=== PATIENT | male | born 1935 | race Caucasian/White ===

== ENCOUNTER 2017-02-23 10:32 | Outpatient (CLI) ==
--- NOTE | 2017-02-23 11:39 | CT ---
EXAM: CT chest without contrast. HISTORY: Pulmonary nodule follow-up. COMPARISON: 05/26/2016, 02/15/2016, 10/16/2009. TECHNIQUE: Multiple axial images of the chest were obtained without intravenous contrast. Images w ere reformatted in the sagittal and coronal planes. FINDINGS: Multiple mediastinal lymph nodes are present. Calcified mediastinal and hilar lymph node s also present. Heart size is normal. There is no pericardial effusion. Ascending thoracic aorta measures up to 4.8 cm diameter. Atherosclerotic calcifications identified. Calcified pleural plaquing noted bilaterally. Emphysematous changes seen in both lungs with scarrin g in both lung apices, greater on the left. Right upper lobe micronodules have resolved. No suspic ious nodule, consolidation, pleural effusion or pneumothorax identified. Probable mucus in the left main bronchi. Limited images of the upper abdomen demonstrate no acute finding. No acute osseous abnormality iden tified. IMPRESSION: 1. Resolution of right upper lobe micronodules. No acute cardiopulmonary abnormality. 2. Redemonstration of ascending thoracic aortic aneurysm measuring up to 4.8 cm.
== END 2017-02-23 10:33 | disposition home or self-care (01) ==
LOC: RAD 10:32
PROVIDERS: ATTEND Internal Medicine Pulmonary Disease
DX: R91.8 Other nonspecific abnormal finding of lung field (principal)

== ENCOUNTER 2017-03-02 10:55 | Inpatient (IN) ==
[2017-03-02] MEDS ORDERED: VISTARIL INJ IM PRN (11:29)
[2017-03-02] MEDS ORDERED: NITROSTAT SL PRN (11:29)
[2017-03-02] MEDS ORDERED: ATROPINE SULFATE PFS IVP PRN (11:29)
[2017-03-02] MEDS ORDERED: TYLENOL PO PRN (11:29)
[2017-03-02] MEDS ORDERED: LOVENOX SUBCUT STA (11:35)
[2017-03-02] MEDS ORDERED: ASPIRIN EC PO STA (11:35)
[2017-03-02] MEDS ORDERED: HYDROCHLOROTHIAZIDE PO SCH (11:54)
[2017-03-02 11:55] LABS: BASOPHILS % (AUTO) 0.5 % (0.0-3.0); EOSINOPHILS % (AUTO) 0.5 % (0.0-7.0); HEMATOCRIT 43.1 % (42.0-52.0); HEMOGLOBIN 15.1 g/dl (14.0-18.0); IMMATURE GRANULOCYTE % (AUTO) 0.2 % (0.0-5.0); LYMPHOCYTES # (AUTO) 1.4 K/uL (0.60-3.4); MEAN CORPUSCULAR HEMOGLOBIN 31.9 pg (27.0-31.0); MEAN CORPUSCULAR VOLUME 90.9 fl (80.0-94.0); MONOCYTES # (AUTO) 0.4 K/uL (0.4-2.0); MONOCYTES % (AUTO) 7.4 (0-10); NEUTROPHILS # (AUTO) 3.9 K/ul (2.0-6.9); NEUTROPHILS % (AUTO) 67.4; PLATELET COUNT 199 10^3/uL (140-440); RED BLOOD COUNT 4.74 10^6/ul (4.70-6.10)
[2017-03-02 11:56] LABS: ABG BASE EXCESS -4 (-2.0-2.0); ABG PCO2 28.1 mmHg (35-45); ABG PH 7.453 (7.35-7.45)
[2017-03-02 11:57] LABS: ABG HCO3 19.7 (22.0-26.0); ABG TCO2 21 (22.0-28.0)
[2017-03-02] MEDS ORDERED: NON-FORMULARY MEDICATION (Hydrochlorothiazide [Hydrochlorothiazide] 12.5 MG) PO SCH ×22 (12:00)
[2017-03-02] MEDS ORDERED: SODIUM CHLORIDE 1,000 ML IV SCH (12:00)
[2017-03-02 12:19] VITALS: BMI 28.0
[2017-03-02 12:29] LABS: ALANINE AMINOTRANSFERASE 16 U/L (12-78); ALBUMIN/GLOBULIN RATIO 1.11; ALKALINE PHOSPHATASE 109 U/L (56-119); ASPARTATE AMINO TRANSFERASE 19 U/L (15-37); BLOOD UREA NITROGEN 22 mg/dL (7-18); BUN/CREATININE RATIO 18.64; CALCIUM 10.4 mg/dL (8.2-10.2); CARBON DIOXIDE 25 mmol/L (23-31); CHLORIDE 105 mmol/L (98-107); CREATINE KINASE 154 U/L; CREATININE 1.18 mg/dL (0.60-1.10); GLUCOSE 98 mg/dL (82-115); MYOGLOBIN 93 ng/ml; SODIUM 140 mmol/L (136-145); TOTAL PROTEIN 7.6 g/dL (5.8-8.1)
[2017-03-02 12:31] LABS: CREATINE KINASE MB 2.7 ng/ml (0.0-3.6)
[2017-03-02 14:33] LABS: BILIRUBIN,URINE Negative (NEGATIVE); KETONES,URINE Negative (NEGATIVE); LEUKOCYTE ESTERASE ,URINE Negative (NEGATIVE); NITRITE,URINE Negative (NEGATIVE); PH,URINE 5.5 (5-9); PROTEIN,URINE Negative (NEGATIVE); URINE, BLOOD Negative (NEGATIVE)
[2017-03-02 14:34] LABS: ADD URINE MICROSCOPIC NO
--- NOTE | 2017-03-02 16:10 | CT ---
EXAM: CT Angiogram Chest. HISTORY: Shortness of breath. Elevated D-dimer. COMPARISON: 02/23/2017. TECHNIQUE: Multiple axial images of the chest were obtained following intravenous administration of 100 mL of Visipaque 320, low osmolar. Images were reformatted in the sagittal and coronal plane. 3-D and maximum intensity projection reformatted images were created on an independent workstation. FINDINGS: Multiple small mediastinal lymph nodes present. Calcified mediastinal and hilar lymph no ajay also noted. Heart size is normal. No pericardial effusion identified. Atherosclerotic calcifi cations noted. Ascending thoracic aorta measures up to 4.8 cm diameter. No pulmonary arterial filling defects are identified. Calcified pleural plaquing noted bilaterally with stable areas of scarring in the left greater than right lung. Emphysematous changes again note d. No consolidation, pleural effusion or pneumothorax identified. Small hiatal hernia noted. No acute abnormality identified in the upper abdomen. No acute osseous abnormality detected. IMPRESSION: 1. No evidence for pulmonary embolus or other acute abnormality of the chest. 2. Stable ascending thoracic aortic aneurysm measuring up to 4.8 cm. 3. Stable calcified pleural plaquing, emphysema and areas of scarring.
[2017-03-02] MEDS ORDERED: ROCEPHIN ONE (18:23)
[2017-03-02] MEDS: ROCEPHIN 1 GM in SODIUM CHLORIDE 50 ML IV SCH (18:31)
[2017-03-02] MEDS: SOLU-MEDROL 125 MG IVP SCH ×2 (18:33→20:14)
[2017-03-02 20:13] LABS: TROPONIN I 0.011 ng/ml (0.0000-0.4000)
[2017-03-02] MEDS: FERROUS SULFATE PO SCH (20:14)
[2017-03-02] MEDS: ASPIRIN EC PO SCH (20:14)
[2017-03-02] MEDS: COLACE PO SCH (20:14)
[2017-03-02 20:16] LABS: CREATINE KINASE MB 2.3 ng/ml (0.0-3.6)
[2017-03-02] MEDS ORDERED: NON-FORMULARY MEDICATION (Ferrous Sulfate [Feosol] 325 MG) PO SCH ×22 (21:00)
[2017-03-02] MEDS ORDERED: NON-FORMULARY MEDICATION (Docusate Sodium [Stool Softener] 100 MG) PO SCH ×22 (21:00)
[2017-03-02] MEDS ORDERED: TORADOL IVP STA (21:03)
[2017-03-02] MEDS: DUONEB NEB SCH (21:23)
[2017-03-03] MEDS: DUONEB NEB SCH ×3 (05:04→22:08)
[2017-03-03 05:34] LABS: HEMATOCRIT 40.7 % (42.0-52.0); HEMOGLOBIN 14.4 g/dl (14.0-18.0); IMMATURE GRANULOCYTE % (AUTO) 0.4 % (0.0-5.0); LYMPHOCYTES # (AUTO) 1.2 K/uL (0.60-3.4); LYMPHOCYTES % (AUTO) 21.2 (10.0-50.0); MEAN CORPUSCULAR HEMOGLOBIN 31.8 pg (27.0-31.0); MEAN CORPUSCULAR HGB CONC 35.4 (31.8-35.4); MEAN CORPUSCULAR VOLUME 89.8 fl (80.0-94.0); MONOCYTES # (AUTO) 0.1 K/uL (0.4-2.0); MONOCYTES % (AUTO) 1.1 (0-10); NEUTROPHILS # (AUTO) 4.3 K/ul (2.0-6.9); NEUTROPHILS % (AUTO) 77.3; PLATELET COUNT 180 10^3/uL (140-440); RED BLOOD COUNT 4.53 10^6/ul (4.70-6.10); WHITE BLOOD COUNT 5.52 K/ul (4.2-10.2)
[2017-03-03] MEDS: SYNTHROID PO SCH (05:34)
[2017-03-03] MEDS: SOLU-MEDROL 125 MG IVP SCH ×3 (05:34→20:50)
[2017-03-03] MEDS: PROTONIX PO SCH (05:34)
[2017-03-03 06:03] LABS: ALBUMIN 3.5 g/dL (3.4-5.0); ALBUMIN/GLOBULIN RATIO 1.09; ANION GAP 19.2; BILIRUBIN,TOTAL 0.55 mg/dL (0.00-1.20); BUN/CREATININE RATIO 19.49; CALCIUM 9.8 mg/dL (8.2-10.2); CREATININE 1.18 mg/dL (0.60-1.10); POTASSIUM 4.2 mmol/L (3.5-5.1); TOTAL PROTEIN 6.7 g/dL (5.8-8.1)
[2017-03-03] MEDS ORDERED: ASPIRIN EC PO SCH (08:00)
--- NOTE | 2017-03-03 08:55 | PCM.PROG ---
Attending Provider: [facility] PROVID[facility] DATE OF SERV[facility]: 03/03/17 SUBJECTIVE: This 82 year old WHITE/ M was hospitalized 03/02/17. The patient is sitting in bed not in distress. Shortness of breath is a lot better. CT scan did not show pneumonia. Two sets of cardiac enzymes are negative. BNP is negative. EKG did not show any acute changes. REVIEW OF SYSTEMS: CONSTITUTIONAL: No fever, no chills. ENDOCRINE: No weight loss or weight gain. HEENT: No sinus drainage, no sore throat. CVS: No angina symptoms. No CHF symptoms. No palpitations. No atypical chest pain for CAD. Shortness of breath improved. RESPIRATORY: No cough, no hemoptysis. GI: No melena. No abdominal pain. No nausea, no vomiting. : No hematuria. No polyuria. SKIN: No rash. No wounds. MUSCULOSKELETAL: No pain. TOPOGRAPHIC COMPUTATOR: No blackout, no dizziness. No headache. No double vision. PSYCHIATRIC: Not anxious; no depression. No suicidal thoughts. No homicidal thoughts. PHYSICAL EXAMINATION: GENERAL: Lying in bed in no distress. VITAL SIGNS: Temperature 97.1 F, Pulse 74, Respiratory Rate 21, BP 113/64, Pulse Ox 96% HEENT: Normocephalic, atraumatic. Mucosa is dry, pallor positive. NECK: No JVP, no carotid bruit. No lymphadenopathy. CARDIAC: S1, S2, no S3. No murmur, gallop or regurgitation. LUNGS: Clear to auscultation. ABDOMEN: Soft, non-tender. Bowel sounds active. No rigidity, guarding or CVA tenderness. EXTREMITIES: No clubbing, cyanosis or edema. NEUROLOGIC: Awake, alert and oriented x3. LYMPHATIC: No palpable lymph nodes SKIN: Not dry. Intact. MUSCULOSKELETAL: No joint swelling. LAB REVIEW: 03/03/17 05:00 03/03/17 05:00 03/03/17 05:00: WBC 5.52, RBC 4.53 L, Hgb 14.4, Hct 40.7 L, MCV 89.8, MCH 31.8 H , MCHC 35.4, RDW Coeff of Camilo 13.2, Plt Count 180, Immature Gran % (Auto) 0.4, Neut % (Auto) 77.3, Lymph % (Auto) 21.2, [place] % (Auto) 1.1, Eos % (Auto) 0.0, Baso % (Auto) 0.0, Immature Gran # (Auto) 0.0, Neut # 4.3, Lymph # 1.2, [place] # 0.1 L, Eos # 0.0, Baso # 0.0, Sodium 140, Potassium 4.2, Chloride 104, Carbon Dioxide 21 L, Anion Gap 19.2, BUN 23 H, Creatinine 1.18 H, Estimated GFR (MDRD) 59.00, BUN/Creatinine Ratio 19.49, Glucose 155 H D, Calcium 9.8, Total Bilirubin 0.55, AST 14 L, ALT 14, Alkaline Phosphatase 97, Total Protein 6.7, Albumin 3.5, Globulin 3.2, Albumin/Globulin Ratio 1.09 03/02/17 19:35: Total Creatine Kinase 132, CK-MB (CK-2) 2.3, CK-MB (CK-2) % 1.98007, Myoglobin 71, Troponin I 0.0110 03/02/17 14:05: Urine Color Yellow, Urine Clarity Clear, Urine pH 5.5, Ur Specific [place] 1.010, Urine Protein Negative, Urine Glucose (UA) Negative, Urine Ketones Negative, Urine Blood Negative, Urine Nitrite Negative, Urine Bilirubin Negative, Urine Urobilinogen 0.2, Ur Leukocyte Esterase Negative 03/02/17 11:45: Puncture Site R rad, O2 Saturation 97.0, ABG pH 7.453 H, ABG pCO2 28.1 L, ABG pO2 82.0 L, ABG HCO3 19.7 L, ABG Total CO2 21 L, ABG Base Excess -4 L, Brad Test +, FiO2 % 21.0 03/02/17 11:40: WBC 5.80, RBC 4.74, Hgb 15.1, Hct 43.1, MCV 90.9, MCH 31.9 H, MCHC 35.0, RDW Coeff of Camilo 13.2, Plt Count 199, Immature Gran % (Auto) 0.2, Neut % (Auto) 67.4, Lymph % (Auto) 24.0, [place] % (Auto) 7.4, Eos % (Auto) 0.5, Baso % (Auto) 0.5, Immature Gran # (Auto) 0.0, Neut # 3.9, Lymph # 1.4, [place] # 0.4, Eos # 0.0, Baso # 0.0, D-Dimer (Manual) 1420.72, Sodium 140, Potassium 4.0 , Chloride 105, Carbon Dioxide 25, Anion Gap 14.0, BUN 22 H, Creatinine 1.18 H, Estimated GFR (MDRD) 59.00, BUN/Creatinine Ratio 18.64, Glucose 98, Calcium 10.4 H, Total Bilirubin 0.50, AST 19, ALT 16, Alkaline Phosphatase 109, Total Creatine Kinase 154, CK-MB (CK-2) 2.7, CK-MB (CK-2) % 1.77140, Myoglobin 93, Troponin I < 0.0100, B-Natriuretic Peptide 41, Total Protein 7.6, Albumin 4.0, Globulin 3.6, Albumin/Globulin Ratio 1.11 ASSESSMENT: 1. Shortness of breath secondary to COPD exacerbation, bronchitis 2. Shortness of breath, noncardiac 3. Hypertension 4. Osteoarthritis 5. Dyslipidemia PLAN: 1. Up and about 2. Contiue Rocephin 3. Continue Duonebs 4. Continue Solu-Medrol 5. Continue Lovenox Plan and coordination of the patient's care discussed in the presence of Chainstitch Hemmer and nurse. CONDITION: Stable SCRIBED BY: BRYAN SANABRIA Electrician Sound scribed while in presence of service performed by Dr. SELIN [facility] on 03/03/17 ([id number])
[2017-03-03] MEDS ORDERED: NON-FORMULARY MEDICATION (Losartan Potassium [Losartan Potassium] 50 MG) PO SCH (09:00)
[2017-03-03] MEDS ORDERED: NON-FORMULARY MEDICATION (Cholecalciferol (Vitamin D3) [Vitamin D3] 400 UNIT) PO SCH (09:00)
[2017-03-03] MEDS ORDERED: SYMBICORT 160-4.5 MCG INHALER IH SCH (09:00)
[2017-03-03] MEDS: MORPHINE 4 MG/ML SYRINGE IVP PRN ×2 (10:48→20:54)
[2017-03-03] MEDS: ROCEPHIN 1 GM in SODIUM CHLORIDE 50 ML IV SCH (10:54)
[2017-03-03] MEDS: SYMBICORT 160-4.5 MCG INHALER IH SCH ×2 (10:54→20:19)
[2017-03-03] MEDS: COZAAR PO SCH (10:55)
[2017-03-03] MEDS: FERROUS SULFATE PO SCH ×2 (10:56→20:21)
[2017-03-03] MEDS: COLACE PO SCH ×2 (10:56→20:20)
[2017-03-03] MEDS: VITAMIN D PO SCH (10:56)
[2017-03-03] MEDS: ASPIRIN EC PO SCH (20:20)
[2017-03-03] MEDS ORDERED: DULCOLAX PO STA (20:56)
[2017-03-04] MEDS: MORPHINE 4 MG/ML SYRINGE IVP PRN (01:25)
[2017-03-04 04:24] LABS: BASOPHILS % (AUTO) 0.1 % (0.0-3.0); EOSINOPHILS % (AUTO) 0.1 % (0.0-7.0); HEMATOCRIT 37.4 % (42.0-52.0); HEMOGLOBIN 13.4 g/dl (14.0-18.0); IMMATURE GRANULOCYTE % (AUTO) 0.8 % (0.0-5.0); LYMPHOCYTES # (AUTO) 0.9 K/uL (0.60-3.4); MEAN CORPUSCULAR HEMOGLOBIN 32.8 pg (27.0-31.0); MEAN CORPUSCULAR HGB CONC 35.8 (31.8-35.4); MEAN CORPUSCULAR VOLUME 91.4 fl (80.0-94.0); MONOCYTES # (AUTO) 0.5 K/uL (0.4-2.0); MONOCYTES % (AUTO) 3.1 (0-10); NEUTROPHILS # (AUTO) 13.6 K/ul (2.0-6.9); NEUTROPHILS % (AUTO) 89.9; PLATELET COUNT 213 10^3/uL (140-440); RED BLOOD COUNT 4.09 10^6/ul (4.70-6.10); WHITE BLOOD COUNT 15.12 K/ul (4.2-10.2)
[2017-03-04 04:50] LABS: ALBUMIN 3.4 g/dL (3.4-5.0); ALBUMIN/GLOBULIN RATIO 1.17; ANION GAP 19.5; BILIRUBIN,TOTAL 0.38 mg/dL (0.00-1.20); BUN/CREATININE RATIO 25.22; CALCIUM 9.8 mg/dL (8.2-10.2); CREATININE 1.11 mg/dL (0.60-1.10); POTASSIUM 4.5 mmol/L (3.5-5.1); TOTAL PROTEIN 6.3 g/dL (5.8-8.1)
[2017-03-04] MEDS: DUONEB NEB SCH ×2 (05:09→14:06)
[2017-03-04] MEDS: PROTONIX PO SCH (05:34)
[2017-03-04] MEDS: SYNTHROID PO SCH (05:34)
[2017-03-04] MEDS: SOLU-MEDROL 125 MG IVP SCH ×2 (05:54→13:06)
[2017-03-04] MEDS: FERROUS SULFATE PO SCH (08:21)
[2017-03-04] MEDS: VITAMIN D PO SCH (08:21)
[2017-03-04] MEDS: COZAAR PO SCH (08:21)
[2017-03-04] MEDS: COLACE PO SCH (08:21)
[2017-03-04] MEDS: ROCEPHIN 1 GM in SODIUM CHLORIDE 50 ML IV SCH (08:32)
[2017-03-04] MEDS: SYMBICORT 160-4.5 MCG INHALER IH SCH (08:32)
[2017-03-04] MEDS ORDERED: HYDROCHLOROTHIAZIDE PO SCH (09:00)
[2017-03-04 17:49] VITALS: BP 105/56; TEMP 97.5
--- NOTE | 2017-04-07 10:37 | DS ---
DATE OF SERVICE: 03/04/17 FINAL DIAGNOSIS: 1. Acute shortness of breath secondary to the COPD exacerbation 2. Aortic aneurysm, 4.8cm 3. Essential hypertension 4. Hypothyroidism 5. GERD 6. Tiny Hiatal hernia 7. Chronic diverticulosis 8. Arthritis 9. BPH 10.Erectile dysfunction, status post penile implant 11.Elevated D-dimer negative for the PE 12.Bilateral shoulder surgery 13.Elbow surgery 14.Cholecystectomy DISCHARGE INSTRUCTIONS: Discharge the patient home. Continue home medications. Followup with Dr. Joyce in 5-7 days. MEDICATIONS AT DISCHARGE: Symbicort 2 puffs twice a day Vitamin D 3 Stool softener Hydrochlorothiazide Levothyroxine Losartan Pantoprazole NEW PRESCRIPTIONS: Keflex 500mg Q 12 hours Prednisone 10mg twice a day for 7 more days DIET INSTRUCTIONS: Cardiac and Healthy ACTIVITY: As much as tolerated SMOKING: Heavy smoker DISEASE SPECIFIC EDUCATION: Healthy diet Weight loss Medication side effects been discussed Followup Diet control COPD Use of inhalers HOSPITAL COURSE: Mario Sylvester who is a 82 year old male came to the office complaining of acute onset of the shortness of breath, chest tightness, cough and congestion. At that time he was admitted to the hospital and started IV antibiotics, D-dimer was 1420, ABG showed the pH 7.453, pCO2 28.1, pO2 82, BUN 22, creatinine 1.18. BNP is 41. The patient was started on the breathing treatments and antibiotics. Solu-Medrol 60mg Q 8 was given. DUO NEBS were given. Rocephin 1 gram was given. With the given treatment gradually the patient started feeling better. CT chest with contrast did not show any PE, has ascending aneurysm of 4.8cm. BUN and creatinine were steady 22.18 and 23.18 and 28.11. BNP was negative. Two sets of the cardiac enzymes were negative. The patient is up and about and started walking and did not have any complications. No leg edema. As patient was feeling better the patient is being discharged home and outpatient pulmonology consultation will be obtains. TIME SPENT: MORE THAN 55 MINUTES MTDD
== END 2017-03-04 19:40 | disposition home or self-care (01) | DRG 192 ==
LOC: MEDSURG B 10:55
PROVIDERS: ADMIT Emergency Medicine; ATTEND Emergency Medicine
DX: J44.1 Chronic obstructive pulmonary disease with (acute) exacerbation (principal); R06.02 Shortness of breath; R07.89 Other chest pain; I71.2 Thoracic aortic aneurysm, without rupture; J20.9 Acute bronchitis, unspecified; R79.1 Abnormal coagulation profile; I10 Essential (primary) hypertension; E03.9 Hypothyroidism, unspecified; K21.9 Gastro-esophageal reflux disease without esophagitis; K44.9 Diaphragmatic hernia without obstruction or gangrene; K57.90 Diverticulosis of intestine, part unspecified, without perforation or abscess without bleeding; M19.90 Unspecified osteoarthritis, unspecified site; N40.0 Benign prostatic hyperplasia without lower urinary tract symptoms; N52.9 Male erectile dysfunction, unspecified; Z79.899 Other long term (current) drug therapy
CPT/HCPCS: 36415; 80053; 81001; 82550; 82553; 82803; 83874; 83880; 84484; 85025; 85379; 93005; 93010; 94640

== ENCOUNTER 2017-06-24 12:57 | Outpatient (CLI) ==
[2017-06-24 13:07] LABS: BASOPHILS % (AUTO) 0.4 % (0.0-3.0); EOSINOPHILS # (AUTO) 0.1 K/ul (0.0-0.7); EOSINOPHILS % (AUTO) 1.6 % (0.0-7.0); HEMATOCRIT 40.4 % (42.0-52.0); HEMOGLOBIN 14.2 g/dl (14.0-18.0); IMMATURE GRANULOCYTE % (AUTO) 0.2 % (0.0-5.0); LYMPHOCYTES # (AUTO) 1.6 K/uL (0.60-3.4); LYMPHOCYTES % (AUTO) 35.3 (10.0-50.0); MEAN CORPUSCULAR HEMOGLOBIN 32.7 pg (27.0-31.0); MEAN CORPUSCULAR HGB CONC 35.1 (31.8-35.4); MEAN CORPUSCULAR VOLUME 93.1 fl (80.0-94.0); MONOCYTES # (AUTO) 0.4 K/uL (0.4-2.0); MONOCYTES % (AUTO) 9.8 (0-10); NEUTROPHILS # (AUTO) 2.4 K/ul (2.0-6.9); NEUTROPHILS % (AUTO) 52.7; PLATELET COUNT 205 10^3/uL (140-440); RED BLOOD COUNT 4.34 10^6/ul (4.70-6.10)
[2017-06-24 13:39] LABS: ALBUMIN 3.7 g/dL (3.4-5.0); ALBUMIN/GLOBULIN RATIO 0.97; ANION GAP 13.8; BILIRUBIN,TOTAL 0.48 mg/dL (0.00-1.20); CALCIUM 9.7 mg/dL (8.2-10.2); CREATININE 1.03 mg/dL (0.60-1.10); POTASSIUM 3.8 mmol/L (3.5-5.1); TOTAL PROTEIN 7.5 g/dL (5.8-8.1)
[2017-06-24 13:40] LABS: BUN/CREATININE RATIO 16.5; CHOL/HDL RATIO 5.8 (4.5-6.4)
== END 2017-06-24 12:58 | disposition home or self-care (01) ==
LOC: LAB 12:57
PROVIDERS: ATTEND Emergency Medicine
DX: I71.2 Thoracic aortic aneurysm, without rupture (principal); I10 Essential (primary) hypertension; E03.9 Hypothyroidism, unspecified; K21.9 Gastro-esophageal reflux disease without esophagitis
CPT/HCPCS: 36415; 80053; 80061; 84443; 85025

== ENCOUNTER → 2017-08-26 | Outpatient (RCR) | payer OTHER ==
--- NOTE | 2017-08-06 16:45 | RS.OTEVAL ---
Subjective Date of Note: 08/06/17 Visit #: 1 Date of Evaluation: 08/06/17 Payer Source: MEDICARE Date of Onset/Injury/Change in Status: 07/27/12 Surgery Performed?: No Treatment Diagnosis: Chronic Right Shoulder Treatment Side (optional): Right *Precautions: none Prior Level of Function.....Patient was independent with: Ambulation/Mobility, Community Integration/Access History of Condition/Mechanism of Injury: Pt has had Right shoulder pain for at least 2-3 years. 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 Level of Function: Pt is not able to complete housework, or lifting a bag of groceries above his head, groom his hair, throw a ball with the RUE. Pt has difficulty pushing up on his hands, vacuuming, and sweeping, raking, and sleeping. Pt has a difficult time to put on his coat and shirt. Functional Limitations: Sleep, Self Care, ADL's, Reaching, Pushing, Pulling, Lifting, Carrying Current Complaints/Gains: Not able to use the RUE for reaching up over his head. Pt has severe pain with trying to change a light bulb. Medical History Medical History: Arthritis Surgical History Comments:: 4 back surgeries, bilateral shoulder surgery, right knee replacement, Diagnostic Testing/Imaging:: IMPRESSIONS: 1. C-spine minimal dextroscoliosis, mild spondylosis, multilevel facet arthropathy and multilevel DDD. 2. Mild central canal stenosis as C2-3, C3-4, C4-5, and C6-7. Moderate central stenosis at C5-6. 3. Multilevel cord flattening. No syrinx or myelomalacia. 4. Multilevel foraminal stenosis (anthony. C3-4 and C5-6). 5. Mild bilateral parotid gland fatty infiltration. 6. Bilateral apical lung scarring (left > right). Hx Home Medications: Muscle relaxant, Amlodopine, Benicar, Levothyroxine, Atorvastatin, pain pill Patient's Goals: To be able to use his RUE to reach above his head with less pain. Pain Assessment - Pain Description Pain Description: Radiating, Aching, Chronic Pain Location: Right shoulder in posterior scapula and down the middle deltoid. Pain Description: aches in the back of scapula. Current Pain Intensity: 0 Worst Pain Intensity: 8 Functional Outcome Measures UE Functional Index: 50 - G Codes & Severity Modifier G Codes: Current is CK at 50%. Goal is CH 0% Source of G Code score: Carrying, Moving, and Handling Objects Observation - Observation Posture: Forward Head, Rounded Shoulders Handedness: Right Shoulder ROM: Left WFL's Shoulder Muscle Strength: Left WFL's - Right Shoulder ROM Right Shoulder Flexion: 62 Right Shoulder Extension: 70 Right Shoulder Abduction: 66 Right Shoulder Horizontal Adduction: 20 Right Shoulder Internal Rotation: 30 Right Shoulder External Rotation: 15 Right Shoulder ROM Limitations: Soft Tissue Tightness, Muscle Weakness, Muscle Tone, Pain - Left Shoulder Strength Left Shoulder Flexion: 4+ Good + Left Shoulder Extension: 4+ Good + Left Shoulder Abduction: 4+ Good + Left Shoulder Adduction: 4+ Good + Left Shoulder External Rotation: 4+ Good + Left Shoulder Internal Rotation: 4+ Good + - Right Shoulder Strength Right Shoulder Flexion: 3- Fair- Right Shoulder Extension: 3- Fair- Right Shoulder Abduction: 3- Fair- Right Shoulder Adduction: 3- Fair- Right Shoulder External Rotation: 3- Fair- Right Shoulder Internal Rotation: 3- Fair- - Special Tests Shoulder Drop Arm Test: Positive Right (Pt has so much pain with shoulder flexion.) Elbow ROM: Bilaterally WFL's Elbow Muscle Strength: Bilaterally WFL's - Left Elbow Strength Left Elbow Extension: 4+ Good + Left Elbow Flexion: 4+ Good + Left Forearm Pronation: 4+ Good + Left Forearm Supination: 4+ Good + - Right Elbow Strength Right Elbow Extension: 4+ Good + Right Elbow Flexion: 4+ Good + Right Forearm Pronation: 4+ Good + Right Forearm Supination: 4+ Good + Wrist ROM: Bilaterally WFL's Wrist Muscle Strength: Bilaterally WFL's Sail Finisher Machine Strength Left Hand Sail Finisher Machine Strength: 82 Right Hand Sail Finisher Machine Strength: 80 Dynamometer Testing Position: 2nd Position Palpation Palpation Findings: Tenderness, Trigger Point, Muscle Guarding Comments:: Pt has limited shoulder movements due to muscle tightness. Sensation Right Upper Extremity: Intact/Normal Left Upper Extremity: Intact/Normal Sensation Description: Pain Modalities - Treatment Modality: US with ES (Comb.) Parameters/Method Applied: .4 w/cm2 Treatment Area: Right scapula Patient Position: Sitting - Treatment Modality: Electrical Stim Attended Treatment Area: Right scapula Patient Position: Sitting - Hot Pack/Cryotherapy Treatment: Hot Pack, Cryotherapy Interventions - Exercise/Activities Exercise/Activities/Manual Therapy: Education of drinking water. Manual therapy to help release the RUE scapula. - Charges Timed Code Treatment Minutes: 55 Total Treatment Time: 55 Procedures billed for this date of service:: Ayana-dimas, URBANO Assessment Assessment: Pt has tender points in the right subscapularis, supraspinatus. Pt has impaired shoulder flexion, abduction and external rotation. Patient Education: Body/Joint mechanics, Education of Plan of Care Rehab Potential: Good Problems/Comments: difficulty sleeping, pain during movement of arms, limited functional use of BUE. Short Term Goals Goal #1: Pt pain to decrease to 0-2/10. Goal to be met by: 08/20/17 Goal #2: Pt to increase RUE shoulder flexion to 90 degrees Goal to be met by: 08/20/17 Goal #3: Pt to be independent with home exercise program. Goal to be met by: 08/20/17 Goal #4: Pt to increase RUE shoulder abduction to 90 degrees. Goal to be met by: 08/20/17 Jail Goals Goal #1: Pt pain in RUE shoulder to decrease to 0/10. Goal to be met by: 09/10/17 Goal #2: Pt to increase RUE shoulder flexion to 135 degrees. Goal to be met by: 09/10/17 Goal #3: Pt to be independent with home Exercises. Goal to be met by: 09/10/17 Goal #4: Pt to increase RUE shoulder abduction to 110 degrees. Goal to be met by: 09/10/17 Plan - Treatment to be provided Procedures: Therapeutic Exercises, Therapeutic Activity, Neuromuscular Rehab, Manual Therapy, Patient Education Modalities: Electrical Stimulation, Ultrasound/Phonophoresis, Cryotherapy, Hot Packs - Treatment Plan Frequency: 3 X week Duration: 4 weeks ORDER # VISITS AND/OR THROUGH DATE: 12 - Treatment Code (1) Shoulder joint stiffness Qualifiers: Laterality: right Qualified Code(s): M25.611 - Stiffness of right shoulder , not elsewhere classified (2) Shoulder pain, right Code(s): M25.511 - PAIN IN RIGHT SHOULDER Qualifiers: Chronicity: chronic Qualified Code(s): M25.511 - Pain in right shoulder; G89.29 - Other chronic pain; G89.29 - Other chronic pain Comments: M25.511 Right shoulder pain.
--- NOTE | 2017-08-12 12:06 | RS.OTDNOTE ---
Subjective Date of Note: 08/12/17 Visit #: 2 Date of Evaluation: 08/06/17 Payer Source: MEDICARE Date of Onset/Injury/Change in Status: 07/27/12 Surgery Performed?: No Treatment Diagnosis: Chronic Right Shoulder Treatment Side (optional): Right *Precautions: none Prior Level of Function.....Patient was independent with: Ambulation/Mobility, Community Integration/Access History of Condition/Mechanism of Injury: Pt has had Right shoulder pain for at least 2-3 years. 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 Level of Function: Pt is not able to complete housework, or lifting a bag of groceries above his head, groom his hair, throw a ball with the RUE. Pt has difficulty pushing up on his hands, vacuuming, and sweeping, raking, and sleeping. Pt has a difficult time to put on his coat and shirt. Functional Limitations: Sleep, Self Care, ADL's, Reaching, Pushing, Pulling, Lifting, Carrying Current Complaints/Gains: Pain in supraspinatus, infraspinatus, and subscapularis muscles with shoulder flexion. Pain Assessment - Pain Description Pain Description: Radiating, Aching, Chronic Pain Location: Right shoulder in posterior scapula and down the middle deltoid. Pain Description: aches in the back of scapula. Current Pain Intensity: 3 Worst Pain Intensity: 8 Other comments regarding pain:: Pt hurts more with movement of his RUE into shoulder flexion. Modalities - Treatment Modality: Ultrasound Parameters/Method Applied: .4 w/cm to posterior scapula for 8 minutes to decrease tenderness and pain and increase AROM. Treatment Area: RUE posterior scapula. Patient Position: Sitting - Hot Pack/Cryotherapy Treatment: Hot Pack Comments:: to posterior cervical Interventions - Exercise/Activities Exercise/Activities/Manual Therapy: Education of drinking water. Manual therapy to help release the RUE scapula. HOME EXERCISE PROGRAM: overhead pulleys for 3-4 minutes at this time. - Objective Findings Objective Findings:: Tenderness of RUE posterior scapula. - Charges Timed Code Treatment Minutes: 55 Total Treatment Time: 55 Procedures billed for this date of service:: US, MT x3, HP Short Term Goals Goal #1: Pt pain to decrease to 0-2/10. Goal to be met by: 08/20/17 Goal #2: Pt to increase RUE shoulder flexion to 90 degrees Goal to be met by: 08/20/17 Goal #3: Pt to be independent with home exercise program. Goal to be met by: 08/20/17 Goal #4: Pt to increase RUE shoulder abduction to 90 degrees. Goal to be met by: 08/20/17 Chemical Pumper Goals Goal #1: Pt pain in RUE shoulder to decrease to 0/10. Goal to be met by: 09/10/17 Goal #2: Pt to increase RUE shoulder flexion to 135 degrees. Goal to be met by: 09/10/17 Goal #3: Pt to be independent with home Exercises. Goal to be met by: 09/10/17 Goal #4: Pt to increase RUE shoulder abduction to 110 degrees. Goal to be met by: 09/10/17 Plan PLAN OF CARE EXPIRES ON:: 09/10/17 ORDER # VISITS AND/OR THROUGH DATE: 12 PLAN: Increase RUE AROM into WFL and decrease pain to 0/10. Pt to increase RUE strength to 4+/5. Frequency: 2 X week Duration: 6 weeks
--- NOTE | 2017-08-14 16:34 | RS.OTDNOTE ---
Subjective Date of Note: 08/14/17 Visit #: 3 Date of Evaluation: 08/06/17 Payer Source: MEDICARE Date of Onset/Injury/Change in Status: 07/27/12 Surgery Performed?: No Treatment Diagnosis: Chronic Right Shoulder Treatment Side (optional): Right *Precautions: none Prior Level of Function.....Patient was independent with: Ambulation/Mobility, Community Integration/Access History of Condition/Mechanism of Injury: Pt has had Right shoulder pain for at least 2-3 years. 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 Level of Function: Pt is not able to complete housework, or lifting a bag of groceries above his head, groom his hair, throw a ball with the RUE. Pt has difficulty pushing up on his hands, vacuuming, and sweeping, raking, and sleeping. Pt has a difficult time to put on his coat and shirt. Functional Limitations: Sleep, Self Care, ADL's, Reaching, Pushing, Pulling, Lifting, Carrying Current Complaints/Gains: Pt states his UE feels better upon leaving today. States he has had some pain increase with therapy. States he has a frederic system at home and voices good understanding of CP application. Pain Assessment - Pain Description Pain Description: Radiating, Aching, Chronic Pain Location: Right shoulder in posterior scapula and down the middle deltoid. Pain Description: aches in the back of scapula. Modalities - Treatment Modality: Ultrasound Parameters/Method Applied: 1.5w/cm2 x 10 mins Treatment Area: middle deltoid and posterior shoulder Patient Position: Sitting - Hot Pack/Cryotherapy Treatment: Hot Pack, Cryotherapy Comments:: HP x 15 mins prior with CP applied x 10 mins following. Interventions - Exercise/Activities Exercise/Activities/Manual Therapy: Manual therapy to middle deltoid and posterior shoulder during PROM/gentle stretching. Pt instructed on and performed isometric ex x 4 directions with hold x 10 secs each. Supine PROM/ gentle stretching and hold release ex performed. Pt also instructed and performed codmans ex's in FF standing position and B UE frederic system x 2-3 mins. HOME EXERCISE PROGRAM: overhead pulleys for 3-4 minutes at this time. - Objective Findings Objective Findings:: Tenderness of RUE posterior scapula. - Charges Timed Code Treatment Minutes: 55 Total Treatment Time: 65 Procedures billed for this date of service:: CP US EX MT Assessment Patient Education: Education of diagnosis, Body/Joint mechanics, Home Exercise Program, Home Safety, Activity Modification, Education of Plan of Care Patient demonstrates compliance with HEP?: Yes Short Term Goals Goal #1: Pt pain to decrease to 0-2/10. Goal to be met by: 08/20/17 Progress towards goal: Progressing Goal #2: Pt to increase RUE shoulder flexion to 90 degrees Goal to be met by: 08/20/17 Progress towards goal: Progressing Goal #3: Pt to be independent with home exercise program. Goal to be met by: 08/20/17 Progress towards goal: Progressing Goal #4: Pt to increase RUE shoulder abduction to 90 degrees. Goal to be met by: 08/20/17 Progress towards goal: Progressing Bending Machine Operator Goals Goal #1: Pt pain in RUE shoulder to decrease to 0/10. Goal to be met by: 09/10/17 Progress towards goal: Progressing Goal #2: Pt to increase RUE shoulder flexion to 135 degrees. Goal to be met by: 09/10/17 Progress towards goal: Progressing Goal #3: Pt to be independent with home Exercises. Goal to be met by: 09/10/17 Progress towards goal: Progressing Goal #4: Pt to increase RUE shoulder abduction to 110 degrees. Goal to be met by: 09/10/17 Progress towards goal: Progressing Plan PLAN OF CARE EXPIRES ON:: 09/10/17 ORDER # VISITS AND/OR THROUGH DATE: 12 PLAN: Cont per POC to max fx I, strength, ROM and decrease c/o pain Frequency: 3 X week Duration: 3 weeks
--- NOTE | 2017-08-17 14:17 | RS.OTDNOTE ---
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 Level of Function: Pt is not able to complete housework, or lifting a bag of groceries above his head, groom his hair, throw a ball with the RUE. Pt has difficulty pushing up on his hands, vacuuming, and sweeping, raking, and sleeping. Pt has a difficult time to put on his coat and shirt. Functional Limitations: Sleep, Self Care, ADL's, Reaching, Pushing, Pulling, Lifting, Carrying Current Complaints/Gains: Pt states and demo improvement with AROM of (R) shoulder. States prior that he has not been able to drive a nail overhead but he was able to this wknd. States good compliance with ISO ex's and that he will be more compliant with applying CP following TE/TA of (R) UE. States popping and c/o pain "are getting better." Pain Assessment - Pain Description Pain Description: Radiating, Aching, Chronic Pain Location: Right shoulder in posterior scapula and down the middle deltoid. Pain Description: aches in the back of scapula. Modalities - Treatment Modality: Ultrasound Parameters/Method Applied: 1.5w/cm2 x 10 mins Treatment Area: anterior shoulder Patient Position: Sitting - Hot Pack/Cryotherapy Treatment: Hot Pack, Cryotherapy Interventions - Exercise/Activities Exercise/Activities/Manual Therapy: Manual therapy to middle deltoid and anterior/posterior shoulder during PROM/gentle stretching. Pt instructed on and performed isometric ex x 4 directions with hold x 10 secs each. Supine PROM /gentle stretching and hold release ex performed. Pt also instructed and performed codmans ex's in FF standing position, finger ladder and B UE frederic system x 2-3 mins along with ball/shelf activity and ball circles on the wall. HOME EXERCISE PROGRAM: overhead pulleys for 3-4 minutes at this time. - Objective Findings Objective Findings:: Tenderness of RUE posterior scapula. - Charges Timed Code Treatment Minutes: 45 Total Treatment Time: 65 Procedures billed for this date of service:: US EX2 CP Assessment Patient Education: Education of diagnosis, Body/Joint mechanics, Home Exercise Program, Home Safety, Activity Modification, Education of Plan of Care Patient demonstrates compliance with HEP?: Yes Short Term Goals Goal #1: Pt pain to decrease to 0-2/10. Goal to be met by: 08/20/17 Progress towards goal: Progressing Goal #2: Pt to increase RUE shoulder flexion to 90 degrees Goal to be met by: 08/20/17 Progress towards goal: Partially Met Comments: After PROM Goal #3: Pt to be independent with home exercise program. Goal to be met by: 08/20/17 Progress towards goal: Partially Met Goal #4: Pt to increase RUE shoulder abduction to 90 degrees. Goal to be met by: 08/20/17 Progress towards goal: Progressing Fine Arts Model Goals Goal #1: Pt pain in RUE shoulder to decrease to 0/10. Goal to be met by: 09/10/17 Progress towards goal: Progressing Goal #2: Pt to increase RUE shoulder flexion to 135 degrees. Goal to be met by: 09/10/17 Progress towards goal: Progressing Goal #3: Pt to be independent with home Exercises. Goal to be met by: 09/10/17 Progress towards goal: Progressing Goal #4: Pt to increase RUE shoulder abduction to 110 degrees. Goal to be met by: 09/10/17 Progress towards goal: Progressing Plan PLAN OF CARE EXPIRES ON:: 09/10/17 ORDER # VISITS AND/OR THROUGH DATE: 12 PLAN: Cont per POC to max fx I, strength, and ROM with decreased c/o pain. Frequency: 3 X week Duration: 4 weeks
--- NOTE | 2017-08-19 13:25 | RS.OTDNOTE ---
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 Level of Function: Pt is not able to complete housework, or lifting a bag of groceries above his head, groom his hair, throw a ball with the RUE. Pt has difficulty pushing up on his hands, vacuuming, and sweeping, raking, and sleeping. Pt has a difficult time to put on his coat and shirt. Functional Limitations: Sleep, Self Care, ADL's, Reaching, Pushing, Pulling, Lifting, Carrying Current Complaints/Gains: Pt states good compliance with performing HEP. States he has been applying a CP and states pain and popping is decreased. Pain Assessment - Pain Description Pain Description: Radiating, Aching, Chronic Pain Location: Right shoulder in posterior scapula and down the middle deltoid. Pain Description: aches in the back of scapula. Current Pain Intensity: 2 Worst Pain Intensity: 5 Modalities - Treatment Modality: Ultrasound Parameters/Method Applied: 1.5w/cm2 x 10 mins to anterior shoulder Patient Position: Sitting - Hot Pack/Cryotherapy Treatment: Hot Pack, Cryotherapy Interventions - Exercise/Activities Exercise/Activities/Manual Therapy: Manual therapy to middle deltoid and anterior/posterior shoulder during PROM/gentle stretching. Pt instructed on and performed isometric ex x 4 directions with hold x 10 secs each along with cervical stretching. Sitting PROM/gentle stretching and hold release ex performed. Pt also instructed and performed codmans ex's in FF standing position, finger ladder and B UE frederic system x 2-3 mins along with ball/shelf activity and ball circles on the wall and ball throws. HOME EXERCISE PROGRAM: overhead pulleys for 3-4 minutes at this time. - Objective Findings Objective Findings:: Tenderness decreasing-AROM increased - Charges Timed Code Treatment Minutes: 50 Total Treatment Time: 65 Procedures billed for this date of service:: CP US EX2 Assessment Patient Education: Education of diagnosis, Body/Joint mechanics, Home Exercise Program, Home Safety, Activity Modification, Education of Plan of Care Patient demonstrates compliance with HEP?: Yes Short Term Goals Goal #1: Pt pain to decrease to 0-2/10. Goal to be met by: 08/20/17 Progress towards goal: Progressing Comments: 12/03 Goal #2: Pt to increase RUE shoulder flexion to 90 degrees Goal to be met by: 08/20/17 Progress towards goal: Partially Met Comments: met in FF or supine position Goal #3: Pt to be independent with home exercise program. Goal to be met by: 08/20/17 Progress towards goal: Partially Met Goal #4: Pt to increase RUE shoulder abduction to 90 degrees. Goal to be met by: 08/20/17 Progress towards goal: Progressing Humidifier Attendant Goals Goal #1: Pt pain in RUE shoulder to decrease to 0/10. Goal to be met by: 09/10/17 Progress towards goal: Progressing Goal #2: Pt to increase RUE shoulder flexion to 135 degrees. Goal to be met by: 09/10/17 Progress towards goal: Progressing Goal #3: Pt to be independent with home Exercises. Goal to be met by: 09/10/17 Progress towards goal: Progressing Goal #4: Pt to increase RUE shoulder abduction to 110 degrees. Goal to be met by: 09/10/17 Progress towards goal: Progressing Plan PLAN OF CARE EXPIRES ON:: 09/10/17 ORDER # VISITS AND/OR THROUGH DATE: 12 PLAN: Cont per POC Frequency: 3 X week Duration: 4 weeks
--- NOTE | 2017-08-21 13:42 | RS.OTDNOTE ---
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 Level of Function: Pt is not able to complete housework, or lifting a bag of groceries above his head, groom his hair, throw a ball with the RUE. Pt has difficulty pushing up on his hands, vacuuming, and sweeping, raking, and sleeping. Pt has a difficult time to put on his coat and shirt. Functional Limitations: Sleep, Self Care, ADL's, Reaching, Pushing, Pulling, Lifting, Carrying Current Complaints/Gains: Pt and spouse both pleased with progress. States good compliance with HEP and applying CP. States pain continues but is low and mostly with lowering UE vs raising UE now. Pain Assessment - Pain Description Pain Description: Radiating, Aching, Chronic Pain Location: Right shoulder in posterior scapula and down the middle deltoid. Pain Description: aches in the back of scapula. Current Pain Intensity: 1-2 Worst Pain Intensity: 5 Modalities - Treatment Modality: Ultrasound Parameters/Method Applied: 1.0w/cm2 x 5 mins pulsed at 50% 3.3mhz to anterior shoulder. 1.5w/cm2 x 7 mins to anterior/posterior shoulder Patient Position: Sitting - Hot Pack/Cryotherapy Treatment: Hot Pack, Cryotherapy Interventions - Exercise/Activities Exercise/Activities/Manual Therapy: Manual therapy to middle deltoid and anterior/posterior shoulder during PROM/gentle stretching. Pt instructed on and performed isometric ex x 4 directions with hold x 10 secs each along with cervical stretching. Sitting PROM/gentle stretching and hold release ex performed. Pt also instructed and performed codmans ex's in FF standing position, finger ladder and B UE frederic system x 2-3 mins along with ball/shelf activity and ball circles on the wall and ball throws. HOME EXERCISE PROGRAM: overhead pulleys for 3-4 minutes at this time. - Objective Findings Objective Findings:: Tenderness decreasing-AROM increased - Charges Timed Code Treatment Minutes: 52 Total Treatment Time: 62 Procedures billed for this date of service:: CP US EX2 Assessment Patient Education: Education of diagnosis, Body/Joint mechanics, Home Exercise Program, Home Safety, Activity Modification, Education of Plan of Care Patient demonstrates compliance with HEP?: Yes Short Term Goals Goal #1: Pt pain to decrease to 0-2/10. Goal to be met by: 08/20/17 Progress towards goal: Partially Met Goal #2: Pt to increase RUE shoulder flexion to 90 degrees Goal to be met by: 08/20/17 Progress towards goal: Partially Met Goal #3: Pt to be independent with home exercise program. Goal to be met by: 08/20/17 Progress towards goal: Partially Met Goal #4: Pt to increase RUE shoulder abduction to 90 degrees. Goal to be met by: 08/20/17 Progress towards goal: Progressing Care Home Goals Goal #1: Pt pain in RUE shoulder to decrease to 0/10. Goal to be met by: 09/10/17 Progress towards goal: Progressing Goal #2: Pt to increase RUE shoulder flexion to 135 degrees. Goal to be met by: 09/10/17 Progress towards goal: Progressing Goal #3: Pt to be independent with home Exercises. Goal to be met by: 09/10/17 Progress towards goal: Progressing Goal #4: Pt to increase RUE shoulder abduction to 110 degrees. Goal to be met by: 09/10/17 Progress towards goal: Progressing Plan PLAN OF CARE EXPIRES ON:: 09/10/17 ORDER # VISITS AND/OR THROUGH DATE: 12 PLAN: Cont per POC for fx I strength and I. Frequency: 3 X week Duration: 4 weeks
--- NOTE | 2017-08-25 08:37 | RS.OTDNOTE ---
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 Level of Function: Pt is not able to complete housework, or lifting a bag of groceries above his head, groom his hair, throw a ball with the RUE. Pt has difficulty pushing up on his hands, vacuuming, and sweeping, raking, and sleeping. Pt has a difficult time to put on his coat and shirt. Functional Limitations: Sleep, Self Care, ADL's, Reaching, Pushing, Pulling, Lifting, Carrying Current Complaints/Gains: Pt states good compliance with HEP, frederic use, and applying CP. States increased pain and demo decreased AROM this date. Pt and states they had a busy wknd and believe pt is tired. Pain Assessment - Pain Description Pain Description: Radiating, Aching, Chronic Pain Location: Right shoulder in posterior scapula and down the middle deltoid. Pain Description: aches in the back of scapula. Current Pain Intensity: 3 Worst Pain Intensity: 6 Modalities - Treatment Modality: Ultrasound Parameters/Method Applied: 1.5w/cm2 x 10 mins anterior shoulder and middle deltoid Interventions - Exercise/Activities Exercise/Activities/Manual Therapy: Manual therapy to middle deltoid and anterior/posterior shoulder during PROM/gentle stretching. Pt instructed on and performed isometric ex x 4 directions with hold x 10 secs each along with cervical stretching. Sitting PROM/gentle stretching and hold release ex performed. Pt also instructed and performed codmans ex's in FF standing position, finger ladder and B UE frederic system x 2-3 mins along with ball/shelf activity and ball circles on the wall and ball throws. HOME EXERCISE PROGRAM: overhead pulleys for 3-4 minutes at this time. - Objective Findings Objective Findings:: Tenderness decreasing-AROM increased - Charges Timed Code Treatment Minutes: 60 Total Treatment Time: 60 Procedures billed for this date of service:: CP USEX2 Assessment Patient Education: Education of diagnosis, Body/Joint mechanics, Home Exercise Program, Home Safety, Activity Modification, Education of Plan of Care Patient demonstrates compliance with HEP?: Yes Short Term Goals Goal #1: Pt pain to decrease to 0-2/10. Goal to be met by: 08/20/17 Progress towards goal: Partially Met Goal #2: Pt to increase RUE shoulder flexion to 90 degrees Goal to be met by: 08/20/17 Progress towards goal: Partially Met Goal #3: Pt to be independent with home exercise program. Goal to be met by: 08/20/17 Progress towards goal: Partially Met Goal #4: Pt to increase RUE shoulder abduction to 90 degrees. Goal to be met by: 08/20/17 Progress towards goal: Progressing Civil Engineer In Training Goals Goal #1: Pt pain in RUE shoulder to decrease to 0/10. Goal to be met by: 09/10/17 Progress towards goal: Progressing Goal #2: Pt to increase RUE shoulder flexion to 135 degrees. Goal to be met by: 09/10/17 Progress towards goal: Progressing Goal #3: Pt to be independent with home Exercises. Goal to be met by: 09/10/17 Progress towards goal: Progressing Goal #4: Pt to increase RUE shoulder abduction to 110 degrees. Goal to be met by: 09/10/17 Progress towards goal: Progressing Plan PLAN OF CARE EXPIRES ON:: 09/10/17 ORDER # VISITS AND/OR THROUGH DATE: 12 PLAN: Cont per POC to max fx, strength, and AROM. Frequency: 3 X week Duration: 3 weeks
--- NOTE | 2017-08-26 13:17 | RS.OTDNOTE ---
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 Level of Function: Pt is not able to complete housework, or lifting a bag of groceries above his head, groom his hair, throw a ball with the RUE. Pt has difficulty pushing up on his hands, vacuuming, and sweeping, raking, and sleeping. Pt has a difficult time to put on his coat and shirt. Functional Limitations: Sleep, Self Care, ADL's, Reaching, Pushing, Pulling, Lifting, Carrying Current Complaints/Gains: Pt continues stating he is pleased with his progress and good compliance with HEP and applying CP. States pain at 0 during most of tx and following ice pack. Pain Assessment - Pain Description Pain Description: Radiating, Aching, Chronic Pain Location: Right shoulder in posterior scapula and down the middle deltoid. Pain Description: aches in the back of scapula. Current Pain Intensity: 2 Worst Pain Intensity: 5 Modalities - Treatment Modality: Ultrasound Parameters/Method Applied: 1.5w/cm2 x 10 mins Patient Position: Sitting - Hot Pack/Cryotherapy Treatment: Hot Pack, Cryotherapy Interventions - Exercise/Activities Exercise/Activities/Manual Therapy: Manual therapy to middle deltoid and anterior/posterior shoulder during PROM/gentle stretching. Pt instructed on and performed isometric ex x 4 directions with hold x 10 secs each along with cervical stretching. Sitting PROM/gentle stretching and hold release ex performed. Pt also instructed and performed codmans ex's in FF standing position, finger ladder and B UE frederic system x 2-3 mins along with ball/shelf activity and ball circles on the wall and ball throws. HOME EXERCISE PROGRAM: overhead pulleys for 3-4 minutes at this time. - Objective Findings Objective Findings:: Tenderness decreasing-AROM increased - Charges Timed Code Treatment Minutes: 45 Total Treatment Time: 59 Procedures billed for this date of service:: CP USEX2 Assessment Patient Education: Education of diagnosis, Body/Joint mechanics, Home Exercise Program, Home Safety, Activity Modification, Education of Plan of Care Patient demonstrates compliance with HEP?: Yes Short Term Goals Goal #1: Pt pain to decrease to 0-2/10. Goal to be met by: 08/20/17 Progress towards goal: Partially Met Goal #2: Pt to increase RUE shoulder flexion to 90 degrees Goal to be met by: 08/20/17 Progress towards goal: Partially Met Goal #3: Pt to be independent with home exercise program. Goal to be met by: 08/20/17 Progress towards goal: Partially Met Goal #4: Pt to increase RUE shoulder abduction to 90 degrees. Goal to be met by: 08/20/17 Progress towards goal: Progressing Telehealth Nurse Educator Goals Goal #1: Pt pain in RUE shoulder to decrease to 0/10. Goal to be met by: 09/10/17 Progress towards goal: Progressing Goal #2: Pt to increase RUE shoulder flexion to 135 degrees. Goal to be met by: 09/10/17 Progress towards goal: Progressing Goal #3: Pt to be independent with home Exercises. Goal to be met by: 09/10/17 Progress towards goal: Progressing Goal #4: Pt to increase RUE shoulder abduction to 110 degrees. Goal to be met by: 09/10/17 Progress towards goal: Progressing Plan PLAN OF CARE EXPIRES ON:: 09/10/17 ORDER # VISITS AND/OR THROUGH DATE: 12 PLAN: Cont per POC. Frequency: 3 X week Duration: 3 weeks
== END ==
PROVIDERS: ATTEND Emergency Medicine
DX: M25.511 Pain in right shoulder (principal)

== ENCOUNTER 2017-09-08 10:00 | Outpatient (RCR) | payer OTHER ==
[2017-06-24 13:01] VITALS: BMI 28.0
--- NOTE | 2017-08-31 08:47 | RS.OTDNOTE ---
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 Level of Function: Pt is not able to complete housework, or lifting a bag of groceries above his head, groom his hair, throw a ball with the RUE. Pt has difficulty pushing up on his hands, vacuuming, and sweeping, raking, and sleeping. Pt has a difficult time to put on his coat and shirt. Functional Limitations: Sleep, Self Care, ADL's, Reaching, Pushing, Pulling, Lifting, Carrying Current Complaints/Gains: Pt voices increased "soreness" with decreased AROM this date. States he believes the weather is affecting his level of pain. Pt cont stating good compliance with HEP and CP application. Pain Assessment - Pain Description Pain Description: Tightness, Radiating, Sharp, Dull, Throbbing, Aching Pain Location: Right shoulder in posterior scapula and down the middle deltoid. Pain Description: aches in the back of scapula. Current Pain Intensity: 3 Worst Pain Intensity: 5-6 Modalities - Treatment Modality: Ultrasound Parameters/Method Applied: Pulsed at 50% x 10 mins to anterior shoulder. - Treatment Modality: Class 4 Laser Parameters/Method Applied: Chronic pain shoulder protocol. no charge this date - Hot Pack/Cryotherapy Treatment: Hot Pack, Cryotherapy Comments:: HP prior to TE/TA with an ice massage/manual therapy performred following AROM/TE/TA's. Interventions - Exercise/Activities Exercise/Activities/Manual Therapy: Manual therapy to middle deltoid and anterior/posterior shoulder during PROM/gentle stretching. Pt instructed on and performed isometric ex x 4 directions with hold x 10 secs each along with cervical stretching. Sitting PROM/gentle stretching and hold release ex performed. Pt also instructed and performed codmans ex's in FF standing position, finger ladder and B UE frederic system x 2-3 mins along with ball/shelf activity and ball circles on the wall and ball throws. HOME EXERCISE PROGRAM: overhead pulleys for 3-4 minutes at this time. - Objective Findings Objective Findings:: Tenderness decreasing-AROM increased - Charges Timed Code Treatment Minutes: 50 Total Treatment Time: 65 Procedures billed for this date of service:: CP US EX Assessment Patient Education: Education of diagnosis, Body/Joint mechanics, Home Exercise Program, Home Safety, Activity Modification, Education of Plan of Care Patient demonstrates compliance with HEP?: Yes Short Term Goals Goal #1: Pt pain to decrease to 0-2/10. Goal to be met by: 08/20/17 Progress towards goal: Partially Met Goal #2: Pt to increase RUE shoulder flexion to 90 degrees Goal to be met by: 08/20/17 Progress towards goal: Met Goal #3: Pt to be independent with home exercise program. Goal to be met by: 08/20/17 Progress towards goal: Met Goal #4: Pt to increase RUE shoulder abduction to 90 degrees. Goal to be met by: 08/20/17 Progress towards goal: Met Prison Goals Goal #1: Pt pain in RUE shoulder to decrease to 0/10. Goal to be met by: 09/10/17 Progress towards goal: Progressing Goal #2: Pt to increase RUE shoulder flexion to 135 degrees. Goal to be met by: 09/10/17 Progress towards goal: Progressing Goal #3: Pt to be independent with home Exercises. Goal to be met by: 09/10/17 Progress towards goal: Progressing Goal #4: Pt to increase RUE shoulder abduction to 110 degrees. Goal to be met by: 09/10/17 Progress towards goal: Progressing Plan PLAN OF CARE EXPIRES ON:: 09/10/17 ORDER # VISITS AND/OR THROUGH DATE: 12 PLAN: OTR to reasses pt on next visit Frequency: 3 X week Duration: 1 week (OTR to reassess pt on next (10th) visit.)
--- NOTE | 2017-09-01 16:00 | RS.OTPN ---
Subjective Date of Note: 09/01/17 Visit #: 10 Date of Evaluation: 08/06/17 Payer Source: MEDICARE Date of Onset/Injury/Change in Status: 07/27/12 Surgery Performed?: No Treatment Diagnosis: Chronic Right Shoulder Treatment Side (optional): Right *Precautions: none Prior Level of Function.....Patient was independent with: Ambulation/Mobility, Community Integration/Access History of Condition/Mechanism of Injury: Pt has had Right shoulder pain for at least 2-3 years. 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 Level of Function: Pt is not able to complete housework, or lifting a bag of groceries above his head, groom his hair, throw a ball with the RUE. Pt has difficulty pushing up on his hands, vacuuming, and sweeping, raking, and sleeping. Pt has a difficult time to put on his coat and shirt. Functional Limitations: Sleep, Self Care, ADL's, Reaching, Pushing, Pulling, Lifting, Carrying Current Complaints/Gains: Pt reports he is getting better. He continues with pain in External Rotation and Abduction. Pt c/o pain with Codman's exercises Pain Assessment - Pain Description Pain Description: Tightness, Radiating, Sharp, Dull, Throbbing, Aching Pain Location: Right shoulder in posterior scapula and down the middle deltoid. Pain Description: aches in the back of scapula. Current Pain Intensity: 0 Worst Pain Intensity: 5 Functional Outcome Measures UE Functional Index: 27 - G Codes & Severity Modifier G Codes: Current is CJ at 27.5% impaired. Goal is CH- 0 Source of G Code score: Carrying , moving and Handling Observation - Observation Posture: Forward Head Handedness: Right - Right Shoulder ROM Right Shoulder Flexion: 110 Right Shoulder Extension: 55 Right Shoulder Abduction: 90 Right Shoulder Horizontal Adduction: 30 Right Shoulder Internal Rotation: 30 Right Shoulder External Rotation: 54 Right Shoulder ROM Limitations: Muscle Weakness, Pain - Left Shoulder Strength Left Shoulder Flexion: 4+ Good + Left Shoulder Extension: 4+ Good + Left Shoulder Abduction: 4+ Good + Left Shoulder Adduction: 4+ Good + Left Shoulder External Rotation: 4+ Good + Left Shoulder Internal Rotation: 4+ Good + - Right Shoulder Strength Right Shoulder Flexion: 4- Good- Right Shoulder Extension: 4+ Good + Right Shoulder Abduction: 4- Good- Right Shoulder Adduction: 4- Good- Right Shoulder External Rotation: 4- Good- Right Shoulder Internal Rotation: 4- Good- Elbow ROM: Left WFL's Elbow Muscle Strength: Left WFL's - Left Elbow Strength Left Elbow Extension: 4+ Good + Left Elbow Flexion: 4+ Good + Left Forearm Pronation: 4+ Good + Left Forearm Supination: 4+ Good + - Right Elbow Strength Right Elbow Extension: 4- Good- Right Elbow Flexion: 4- Good- Right Forearm Pronation: 4 Good Right Forearm Supination: 4 Good - Left Wrist Strength Left Wrist Extension: 4+ Good + Left Wrist Flexion: 4+ Good + Left Wrist Radial Deviation: 4+ Good + Left Wrist Ulnar Deviation: 4+ Good + Left Forearm Pronation: 4+ Good + Left Forearm Supination: 4+ Good + - Right Wrist Strength Right Wrist Extension: 4+ Good + Right Wrist Flexion: 4+ Good + Right Wrist Radial Deviation: 4+ Good + Right Wrist Ulnar Deviation: 4+ Good + Right Forearm Pronation: 4+ Good + Right Forearm Supination: 4+ Good + Palpation Palpation Findings: Tenderness, Trigger Point, Muscle Guarding Comments:: Pt has limited shoulder movements due to muscle tightness. Sensation Right Upper Extremity: Intact/Normal Left Upper Extremity: Intact/Normal Modalities - Hot Pack/Cryotherapy Treatment: Hot Pack Interventions - Exercise/Activities Exercise/Activities/Manual Therapy: Manual therapy to middle deltoid and anterior/posterior shoulder during PROM/gentle stretching. Pt instructed on and performed isometric ex x 4 directions with hold x 10 secs each along with cervical stretching. Sitting PROM/gentle stretching and hold release ex performed. Pt also instructed and performed codmans ex's in FF standing position, finger ladder and B UE frederic system x 2-3 mins along with ball/shelf activity and ball circles on the wall and ball throws. HOME EXERCISE PROGRAM: overhead pulleys for 3-4 minutes at this time. - Objective Findings Objective Findings:: Tenderness decreasing-AROM increased - Charges Timed Code Treatment Minutes: 60 Total Treatment Time: 60 Procedures billed for this date of service:: HP, EX, MTx3 Assessment Assessment: Pt has made progress toward her OT goals. Pt has 27% impairments. Rehab Potential: Good Problems/Comments: Limited AROM and some weakness of RUE. Pt compensates. Short Term Goals Goal #1: Pt pain to decrease to 0-2/10. Goal to be met by: 08/20/17 Progress towards goal: Partially Met Goal #2: Pt to increase RUE shoulder flexion to 120 degrees Goal to be met by: 09/11/17 Goal #3: Pt to be independent with home exercise program. Goal to be met by: 09/11/17 Goal #4: Pt to increase RUE shoulder abduction to 110 degrees. Goal to be met by: 09/11/17 Braiding Operator Goals Goal #1: Pt pain in RUE shoulder to decrease to 0/10. Goal to be met by: 09/10/17 Progress towards goal: Progressing Goal #2: Pt to increase RUE shoulder flexion to 135 degrees. Goal to be met by: 09/10/17 Progress towards goal: Progressing Goal #3: Pt to be independent with home Exercises. Goal to be met by: 09/10/17 Progress towards goal: Progressing Goal #4: Pt to increase RUE shoulder abduction to 110 degrees. Goal to be met by: 09/10/17 Progress towards goal: Progressing Plan PLAN OF CARE EXPIRES ON:: 09/11/17 ORDER # VISITS AND/OR THROUGH DATE: 12 PLAN: Pt to Complete the order and then we will see how he does. Frequency: 2 X week Duration: 2 weeks
--- NOTE | 2017-09-07 10:00 | RS.OTDNOTE ---
Subjective Date of Note: 09/04/17 Visit #: 11 Date of Evaluation: 08/06/17 Payer Source: MEDICARE Date of Onset/Injury/Change in Status: 07/27/12 Surgery Performed?: No Treatment Diagnosis: Chronic Right Shoulder Treatment Side (optional): Right *Precautions: none Prior Level of Function.....Patient was independent with: Ambulation/Mobility, Community Integration/Access History of Condition/Mechanism of Injury: Pt has had Right shoulder pain for at least 2-3 years. 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 Level of Function: Pt is not able to complete housework, or lifting a bag of groceries above his head, groom his hair, throw a ball with the RUE. Pt has difficulty pushing up on his hands, vacuuming, and sweeping, raking, and sleeping. Pt has a difficult time to put on his coat and shirt. Functional Limitations: Sleep, Self Care, ADL's, Reaching, Pushing, Pulling, Lifting, Carrying Current Complaints/Gains: Pt states the codman's ex increases pain. states good compliance with HEP and is agreeable to cont with upon DC from skilled OT. Pt is agreeable to DC next wk. Pain Assessment - Pain Description Pain Description: Dull Pain Location: Right shoulder in posterior scapula and down the middle deltoid. Pain Description: aches in the back of scapula. Current Pain Intensity: 1 Worst Pain Intensity: 3 Modalities - Treatment Modality: Electrical Stim Unattended Parameters/Method Applied: Hi-volt to pt tolerance cross-current to shoulder Patient Position: Sitting - Hot Pack/Cryotherapy Treatment: Hot Pack (HP x 20 mins) Interventions - Exercise/Activities Exercise/Activities/Manual Therapy: Manual therapy to middle deltoid and anterior/posterior shoulder during PROM/gentle stretching. Pt instructed on and performed isometric ex x 4 directions with hold x 10 secs each along with cervical stretching. Sitting PROM/gentle stretching and hold release ex performed. Pt also instructed and performed codmans ex's in FF standing position, finger ladder and B UE frederic system x 2-3 mins along with ball/shelf activity and ball circles on the wall and ball throws. HOME EXERCISE PROGRAM: overhead pulleys for 3-4 minutes at this time. - Objective Findings Objective Findings:: Tenderness decreasing-AROM increased - Charges Timed Code Treatment Minutes: 35 Total Treatment Time: 55 Procedures billed for this date of service:: HP EX2 ESTIM Assessment Patient Education: Education of diagnosis, Body/Joint mechanics, Home Exercise Program, Home Safety, Activity Modification, Education of Plan of Care Patient demonstrates compliance with HEP?: Yes Short Term Goals Goal #1: Pt pain to decrease to 0-2/10. Goal to be met by: 08/20/17 Progress towards goal: Partially Met Goal #2: Pt to increase RUE shoulder flexion to 120 degrees Goal to be met by: 09/11/17 Progress towards goal: Partially Met Goal #3: Pt to be independent with home exercise program. Goal to be met by: 09/11/17 Progress towards goal: Met Goal #4: Pt to increase RUE shoulder abduction to 110 degrees. Goal to be met by: 09/11/17 Progress towards goal: Progressing Senior Care Goals Goal #1: Pt pain in RUE shoulder to decrease to 0/10. Goal to be met by: 09/10/17 Progress towards goal: Progressing Goal #2: Pt to increase RUE shoulder flexion to 135 degrees. Goal to be met by: 09/10/17 Progress towards goal: Progressing Goal #3: Pt to be independent with home Exercises. Goal to be met by: 09/10/17 Progress towards goal: Progressing Goal #4: Pt to increase RUE shoulder abduction to 110 degrees. Goal to be met by: 09/10/17 Progress towards goal: Progressing Plan PLAN OF CARE EXPIRES ON:: 09/10/17 ORDER # VISITS AND/OR THROUGH DATE: 12 PLAN: Pt to attend x 1 therapy session to max HEP I Frequency: 1 X week Duration: 1 week
--- NOTE | 2017-09-10 13:22 | RS.OTDCSUM ---
Subjective Date of Discharge: 09/08/17 Date of Evaluation: 08/06/17 Number of Visits: 12 Treatment Diagnosis: Chronic RUE shoulder pain Current Level of Function: Pt is 26.25% impaired at discharge. CH was the goal, Current is CJ. Current Complaints/Gains: Pt reports pain with codman's exercises. Pt is proud he is able to use his RUE now. Pain Assessment - Pain Description Pain Description: Dull Pain Location: Right shoulder in posterior scapula and down the middle deltoid. Pain Description: aches in the back of scapula. Current Pain Intensity: 0 Worst Pain Intensity: 2 Functional Outcome Measures UE Functional Index: 59 - G Codes & Severity Modifier G Codes: CH was the goal. CJ is current status at 26.25%. Source of G Code score: Carrying, Moving, and handling Observation - Observation Posture: Forward Head Handedness: Right Shoulder ROM: Left WFL's Shoulder Muscle Strength: Left WFL's - Right Shoulder ROM Right Shoulder Flexion: 110 Right Shoulder Extension: 55 Right Shoulder Abduction: 90 Right Shoulder Internal Rotation: 30 Right Shoulder External Rotation: 54 Right Shoulder ROM Limitations: Soft Tissue Tightness, Muscle Weakness, Pain - Left Shoulder Strength Left Shoulder Flexion: 4+ Good + Left Shoulder Extension: 4+ Good + Left Shoulder Abduction: 4+ Good + Left Shoulder Adduction: 4+ Good + Left Shoulder External Rotation: 4+ Good + Left Shoulder Internal Rotation: 4+ Good + - Right Shoulder Strength Right Shoulder Flexion: 4 Good Right Shoulder Extension: 4+ Good + Right Shoulder Abduction: 4- Good- Right Shoulder Adduction: 4 Good Right Shoulder External Rotation: 4 Good Right Shoulder Internal Rotation: 4- Good- - Special Tests Shoulder Drop Arm Test: Negative Right Elbow ROM: Bilaterally WFL's Elbow Muscle Strength: Bilaterally WFL's - Left Elbow Strength Left Elbow Extension: 4+ Good + Left Elbow Flexion: 4+ Good + Left Forearm Pronation: 4+ Good + Left Forearm Supination: 4+ Good + - Right Elbow Strength Right Elbow Extension: 4 Good Right Elbow Flexion: 4 Good Right Forearm Pronation: 4 Good Right Forearm Supination: 4 Good Wrist ROM: Bilaterally WFL's Wrist Muscle Strength: Bilaterally WFL's - Left Wrist Strength Left Wrist Extension: 4+ Good + Left Wrist Flexion: 4+ Good + Left Wrist Radial Deviation: 4+ Good + Left Wrist Ulnar Deviation: 4+ Good + Left Forearm Pronation: 4+ Good + Left Forearm Supination: 4+ Good + - Right Wrist Strength Right Wrist Extension: 4+ Good + Right Wrist Flexion: 4+ Good + Right Wrist Radial Deviation: 4+ Good + Right Wrist Ulnar Deviation: 4+ Good + Right Forearm Pronation: 4+ Good + Right Forearm Supination: 4+ Good + Palpation Palpation Findings: Tenderness, Trigger Point, Muscle Guarding Comments:: Pt has limited shoulder movements due to muscle tightness. Sensation Right Upper Extremity: Intact/Normal Left Upper Extremity: Intact/Normal Interventions - Exercise/Activities Exercise/Activities/Manual Therapy: Manual therapy to middle deltoid and anterior/posterior shoulder during PROM/gentle stretching. Pt instructed on and performed isometric ex x 4 directions with hold x 10 secs each along with cervical stretching. Sitting PROM/gentle stretching and hold release ex performed. Pt also instructed and performed codmans ex's in FF standing position, finger ladder and B UE frederic system x 2-3 mins along with ball/shelf activity and ball circles on the wall and ball throws. HOME EXERCISE PROGRAM: overhead pulleys for 3-4 minutes at this time. - Objective Findings Objective Findings:: Tenderness decreasing-AROM increased - Charges Timed Code Treatment Minutes: estim, EX Total Treatment Time: 60 Procedures billed for this date of service:: E-stim, EX, Hp/CP Assessment Assessment: Pt has made really good progress with his OT. Pt has met many of his goals. Pt has increased his function of the RUE. Pt continues with 25% impaired but he is happy with his progress and that his pain has decreased. Rehab Potential: Good Problems/Comments: Pt takes longer to dress but he can do it now. Pt can comb his hair. Pt can wash his hair. Short Term Goals Goal #1: Pt pain to decrease to 0-2/10. Goal to be met by: 08/20/17 Progress towards goal: Not Met Goal #2: Pt to increase RUE shoulder flexion to 120 degrees Goal to be met by: 09/11/17 Progress towards goal: Partially Met Goal #3: Pt to be independent with home exercise program. Goal to be met by: 09/11/17 Progress towards goal: Met Goal #4: Pt to increase RUE shoulder abduction to 110 degrees. Goal to be met by: 09/11/17 Progress towards goal: Not Met Psychiatric Nurse Goals Goal #1: Pt pain in RUE shoulder to decrease to 0/10. Goal to be met by: 09/10/17 Progress towards goal: Met Goal #2: Pt to increase RUE shoulder flexion to 135 degrees. Goal to be met by: 09/10/17 Progress towards goal: Not Met Goal #3: Pt to be independent with home Exercises. Goal to be met by: 09/10/17 Progress towards goal: Met Goal #4: Pt to increase RUE shoulder abduction to 110 degrees. Goal to be met by: 09/10/17 Progress towards goal: Not Met Plan Reason for Discharge:: Maximum Potential Met Comments: Pt is independent with his Home exercise program. Pt discharged this date.
== END 2017-09-23 ==
PROVIDERS: ATTEND Emergency Medicine
DX: M25.511 Pain in right shoulder (principal); G89.29 Other chronic pain

== ENCOUNTER 2017-10-02 11:22 | Outpatient (CLI) ==
[2017-06-24 13:01] VITALS: BMI 28.0
== END 2017-10-02 11:23 | disposition home or self-care (01) ==
LOC: RHC-LAB 11:22
PROVIDERS: ATTEND Emergency Medicine
DX: I10 Essential (primary) hypertension (principal); I71.2 Thoracic aortic aneurysm, without rupture; K21.9 Gastro-esophageal reflux disease without esophagitis
CPT/HCPCS: 36415; 80053; 80061; 84443; 85025

== ENCOUNTER 2017-11-10 10:42 | Outpatient (CLI) | payer OTHER ==
[2017-06-24 13:01] VITALS: BMI 28.0
== END 2017-11-10 10:43 | disposition home or self-care (01) ==
LOC: RHC-LAB 10:42
PROVIDERS: ATTEND Emergency Medicine
DX: I71.2 Thoracic aortic aneurysm, without rupture (principal); I10 Essential (primary) hypertension
CPT/HCPCS: 36415; 80053; 80061; 84443; 85025

== ENCOUNTER 2018-03-09 11:05 | Outpatient (CLI) ==
[2017-06-24 13:01] VITALS: BMI 28.0
--- NOTE | 2018-03-09 11:46 | CT ---
EXAM: CT of the chest without contrast History: Short of breath Comparison: Chest CT 03/02/2017 Technique: Multiplanar CT images through the thorax were obtained without the administration of IV c ontrast Findings: Heart size is within normal limits. No change in the 4.8 cm ascending aortic aneurysm. Co ronary calcifications. No pericardial effusion. No axillary lymphadenopathy. Small scattered media stinal lymph nodes again noted. No pathologically enlarged thoracic lymph nodes. Calcified granulom as again seen within the thorax. Emphysema again noted. Biapical lung scarring again appreciated. Bronchial wall thickening but no consolidated pneumonia. No change in the calcified bilateral pleura l plaques and volume loss within the left hemithorax. No change in the 1.3 cm right lower lobe cavit chuy nodule. No suspicious lung masses or lung nodules. Within the visualized upper abdomen, status post cholecystectomy. Colonic diverticulosis. No acute osseous abnormalities. Impression: 1. No acute intrathoracic process. 2. Emphysema. 3. Coronary artery disease. 4. No change in the ascending aortic aneurysm. 5. No change in the calcified bilateral pleural plaques which could be due to asbestos related pleur al disease, old healed infection or old trauma. 6. Mild diffuse bronchial wall thickening. 7. Colonic diverticulosis
--- NOTE | 2018-03-09 12:24 | DI ---
EXAM: Four views of the left knee. History: Left knee pain. Findings: No acute fracture or dislocation. Atherosclerotic vascular disease. Superior patellar en thesiopathy. Anterior soft tissue swelling. Question intra-articular loose body in the suprapatella r compartment. Mild to moderate tricompartmental joint space narrowing with small osteophytes. Impression: 1. No acute osseous abnormality. 2. Mild to moderate arthritis 3. Atherosclerotic vascular disease. 4. Question intra-articular loose body. 5. Anterior soft tissue swelling
--- NOTE | 2018-03-09 12:24 | DI ---
EXAM: Two views of the left hip. History: Left hip pain. Comparison: Left hip radiograph 12/21/2013 Findings: No acute fracture or dislocation. Atherosclerotic vascular calcifications. Mild to modera te narrowing of the left hip joint with marginal sclerosis and osteophyte formation. Impression: 1. No acute osseous abnormality. 2. 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 3. Atherosclerotic vascular disease
== END 2018-03-09 11:06 | disposition home or self-care (01) ==
LOC: RAD 11:05
PROVIDERS: ATTEND Emergency Medicine
DX: I71.2 Thoracic aortic aneurysm, without rupture (principal); I10 Essential (primary) hypertension; K21.9 Gastro-esophageal reflux disease without esophagitis; E03.9 Hypothyroidism, unspecified; M17.10 Unilateral primary osteoarthritis, unspecified knee; M16.10 Unilateral primary osteoarthritis, unspecified hip; R06.02 Shortness of breath
CPT/HCPCS: 36415; 80053; 80061; 84443; 85025

== ENCOUNTER 2018-05-03 15:40 | Outpatient (CLI) ==
[2017-06-24 13:01] VITALS: BMI 28.0
== END 2018-05-03 15:41 | disposition home or self-care (01) ==
LOC: RHC-LAB 15:40
PROVIDERS: ATTEND Nurse Practitioner Family
DX: Z12.5 Encounter for screening for malignant neoplasm of prostate (principal)
CPT/HCPCS: 36415

== ENCOUNTER 2018-06-05 09:19 | Emergency (ER) | payer OTHER ==
[2018-06-05 09:25] VITALS: BP 130/62; TEMP 101; BMI 29.0
--- NOTE | 2018-06-05 09:45 | ED.PDOC ---
General ED Provider: Dr. HELENA VEGA Chief Complaint: Cough Stated Complaint: Pateint states he has been coughing after he mowed his lawn without a mask. He has a history of COPD. Also reprots fever T max 101 Time Seen by Physician: 09:43 Mode of Arrival: Walk-In Information Source: Patient, Family Primary Care Provider: [facility] Nursing and Triage Documentation Reviewed and Agree: Yes Does patient meet sepsis criteria?: No System Inflammatory Response Syndrome: Temp 101F or Greater Sepsis Protocol: For patient's 13 years and over: Temp is 96.8 and below OR 101 and greater Pulse >90 BPM Resp >20/minute Acutely Altered Mental Status Are patient's symptoms suggestive of a new infection, such as: -Pneumonia -Skin, Soft Tissue -Endocarditis -UTI -Bone, Joint Infection -Implantable Device -Acute Abdominal Infection -Wound Infection -Meningitis -Blood Stream Catheter Infection -Unknown Respiratory Complaint Exam - Respiratory Complaint/Exam Onset/Duration: 2 days Symptoms Are: Still present Timing: Constant Initial Severity: Mild Current Severity: Moderate Location: Chest Character: Reports: Productive cough Aggravating: Reports: Allergens (mowing the lawn), Weather. Denies: Passive smoke exposure Alleviating: Reports: None Associated Signs and Symptoms: Reports: Fever, URI Related History: Reports: Similar episode, Seasonal allergies Home Oxygen Use: No Recent Stress Test: No Recent Echo/LV Function: No Current Antibiotic Use: No Current Asthma Medication Use: No Respiratory Distress: None Inadequate Respiratory Effort: No Dysphagia Present: No Stridor Present: No JVD Present: No Accessory Muscle Use: No Retractions: Not Present Differential Diagnoses: COPD Exacerbation, Pneumonia, Bronchitis Review of Systems - Review Of Systems Constitutional: Reports: No symptoms Eyes: Reports: No symptoms Ears, Nose, Mouth, Throat: Reports: No symptoms Respiratory: Reports: Cough Cardiac: Reports: No symptoms GI: Reports: No symptoms : Reports: No symptoms Musculoskeletal: Reports: No symptoms Skin: Reports: No symptoms Neurological: Reports: No symptoms Endocrine: Reports: No symptoms Hematologic/Lymphatic: Reports: No symptoms All Other Systems: Reviewed and Negative Past Medical History - Past Medical History Endocrine: Reports: None Cardiovascular: Reports: Hypertension Respiratory: Reports: COPD Hematological: Reports: None Gastrointestinal: Reports: None Genitourinary: Reports: None Neuro/Psych: Reports: None Musculoskeletal: Reports: None Cancer: Reports: None - Surgical History General Surgical History: Reports: Appendectomy, Cholecystectomy, Orthopedic ( Knee replacement ), Back Surgery (x4) - Family History Family History: Reports: None, Unknown - Social History Smoking Status: Former smoker, Heavy tobacco smoker Hx Substance Use: No Alcohol Screening: None Physical Exam - Physical Exam Appearance: Well-appearing Ill-appearing: Mild Pain Distress: None Eyes: LUCINA, EOMI, Conjunctiva clear Neck: Supple Respiratory: Airway patent, Breath sounds equal, Breath sounds diminished, Respirations nonlabored Cardiovascular: RRR, Pulses normal, No rub, No murmur Musculoskeletal: Normal strength, ROM intact, No edema, No calf tenderness Skin: Warm, Dry, Normal color Neurological: Sensation intact, Motor intact, Reflexes intact, Cranial nerves intact, Alert, Oriented Psychiatric: Anxious Interpretation - Radiology Interpretation Radiology Interpretation By: Radiologist Radiology Results: No acute changes Exam Interpreted: CXR Critical Care Note - Critical Care Note Total Time (mins): 0 Course - Course Hematology/Chemistry: 06/05/18 09:55 06/05/18 09:55 Orders, Labs, Meds: Lab Review 06/05/18 06/05/18 06/05/18 09:45 09:55 09:55 WBC 10.73 H RBC 4.09 L Hgb 13.2 L Hct 37.8 L MCV 92.4 MCH 32.3 H MCHC 34.9 RDW Coeff of Camilo 13.2 Plt Count 176 Immature Gran % (Auto) 0.5 Neut % (Auto) 84.2 Lymph % (Auto) 7.9 L Union % (Auto) 7.2 Eos % (Auto) 0.1 Baso % (Auto) 0.1 Immature Gran # (Auto) 0.1 Neut # (Auto) 9.0 H Lymph # (Auto) 0.9 Union # (Auto) 0.8 Eos # (Auto) 0.0 Baso # (Auto) 0.0 Sodium 134.2 L Potassium 4.06 Chloride 101.2 Carbon Dioxide 25.7 Anion Gap 11.36 BUN 19.3 Creatinine 1.01 Estimated GFR (MDRD) 70.00 BUN/Creatinine Ratio 19.10 Glucose 116.1 H Calcium 8.94 Total Bilirubin 1.58 H AST 23.2 ALT 15.1 Alkaline Phosphatase 106.1 Total Protein 7.39 Albumin 4.01 Globulin 3.38 Albumin/Globulin Ratio 1.18 Influ A Molecular Assay Negative by naat Influ B Molecular Assay Negative by naat Orders Category Date Time Status CBC W/ AUTO DIFF Stat LAB 06/05/18 09:55 Completed COMPREHENSIVE METABOLIC PANEL Stat LAB 06/05/18 09:55 Completed FLU A/B MOLECULAR Stat LAB 06/05/18 09:45 Completed CHEST, 2 VIEWS PA & LAT Stat RADS 06/05/18 09:46 Completed Vital Signs: Temp Pulse Resp BP Pulse Ox 06/05/18 09:19 101 F H 84 20 130/62 96 Departure - Departure Time of Disposition: 10:15 Disposition: HOME SELF-CARE Discharge Problem: Seasonal allergies, Viral syndrome Instructions: Allergies (ED), Viral Syndrome (ED) Condition: Stable Pt referred to PMD for follow-up: Yes IPMP verified?: No Additional Instructions: Start Taking steroids if not better in 1-2 days Take Over the counter Claritin daily for 1 week Prescriptions: Methylprednisolone [Medrol Dosepak] 4 mg PO DIRECTED #1 pkg Allergies/Adverse Reactions: Allergies No Known Allergies Allergy (Verified 06/05/18 09:25) Home Medications: Ambulatory Orders Aspirin [Aspir 81] 81 mg PO BEDTIME #1 tab-cap 12/09/16 Docusate Sodium [Stool Softener] 100 mg PO BID #1 tab-cap 12/09/16 Ferrous Sulfate [Feosol] 325 mg PO BID #1 tab-cap 12/09/16 Hydrochlorothiazide 12.5 mg PO EVERY OTHER DAY 05/03/18 Methylprednisolone [Medrol Dosepak] 4 mg PO DIRECTED #1 pkg 06/05/18 Multivitamin 1 cap PO DAILY 06/05/18 Oxycodone-Acetaminophen 5-325 [Percocet 5-325] 1 tab PO Q12H PRN 06/05/18 Disposition Discussed With: Patient, Family
--- NOTE | 2018-06-05 10:13 | DI ---
EXAM: Chest PA and lateral HISTORY: Cough FINDINGS: Chronic calcified left pleural plaque is unchanged 02/08/2016. No acute airspace opacities are appreciated. The aorta is atherosclerotic. The lungs are hyperinflated. The heart size is norm al. The bones are intact. No pneumothorax or pleural effusions are detected. IMPRESSION: No acute cardiopulmonary disease. Chronic left calcified pleural plaque. ASCVD. Emphysema.
== END 2018-06-05 10:22 | disposition home or self-care (01) ==
LOC: ED 09:19
DX: B34.9 Viral infection, unspecified (principal); J30.2 Other seasonal allergic rhinitis; J44.9 Chronic obstructive pulmonary disease, unspecified; I10 Essential (primary) hypertension
CPT/HCPCS: 36415; 80053; 85025; 87502; 99283

== ENCOUNTER 2018-09-25 09:27 | Emergency (ER) | payer OTHER ==
[2018-09-25 09:38] VITALS: BP 164/96; TEMP 100.1; BMI 39.2
[2018-09-25] MEDS ORDERED: DUONEB NEB STA (10:37)
--- NOTE | 2018-09-25 10:38 | ED.PDOC ---
General ED Provider: Dr. AIDA MARTIN Chief Complaint: Respiratory Complaint Stated Complaint: Cough, congestion, fever and chills. Onset of illness on ary , with associalted Cough with brown colored sputum production. He states his and daughter are ill with similar illnesss. States has taken OTC Cough syrup last evening. Time Seen by Physician: 09:50 Mode of Arrival: Walk-In Information Source: Patient Exam Limitations: No limitations Primary Care Provider: [facility] Nursing and Triage Documentation Reviewed and Agree: Yes Does patient meet sepsis criteria?: No System Inflammatory Response Syndrome: Not Applicable Sepsis Protocol: For patient's 13 years and over: Temp is 96.8 and below OR 101 and greater Pulse >90 BPM Resp >20/minute Acutely Altered Mental Status Are patient's symptoms suggestive of a new infection, such as: -Pneumonia -Skin, Soft Tissue -Endocarditis -UTI -Bone, Joint Infection -Implantable Device -Acute Abdominal Infection -Wound Infection -Meningitis -Blood Stream Catheter Infection -Unknown Respiratory Complaint Exam - Respiratory Complaint/Exam Onset/Duration: 1-2 days Symptoms Are: Still present Timing: Constant Initial Severity: Moderate Current Severity: Moderate Location: Nose, Throat, Chest Character: Reports: Productive cough Aggravating: Reports: None Alleviating: Reports: OTC Meds Associated Signs and Symptoms: Reports: URI, Nasal congestion, Sore throat Related History: Denies: Similar episode History of Healthcare-Acquired Pneumonia: No Related Surgical History: Reports: None Pulmonary Embolism Risk Factors: None Cardiac Risk Factors: Reports: None Pseudomonas Risk Factors: Reports: None Tuberculosis Risk Factors: Reports: None Home Oxygen Use: No Recent Stress Test: No Recent Echo/LV Function: No Current Antibiotic Use: Yes Current Asthma Medication Use: Yes Respiratory Distress: None Inadequate Respiratory Effort: No Dysphagia Present: No Stridor Present: No JVD Present: No Accessory Muscle Use: No Retractions: Not Present Diminished Breath Sounds: No Grunting Respirations: No Kussmaul Respirations: No Differential Diagnoses: COPD Exacerbation, Mycoplasma, Influenza Review of Systems - Review Of Systems Constitutional: Reports: No symptoms Eyes: Reports: No symptoms Ears, Nose, Mouth, Throat: Reports: No symptoms Respiratory: Reports: No symptoms Cardiac: Reports: No symptoms GI: Reports: No symptoms : Reports: No symptoms Musculoskeletal: Reports: No symptoms Skin: Reports: No symptoms Neurological: Reports: No symptoms Endocrine: Reports: No symptoms Hematologic/Lymphatic: Reports: No symptoms All Other Systems: Reviewed and Negative Past Medical History - Past Medical History Endocrine: Reports: None Cardiovascular: Reports: Hypertension Respiratory: Reports: COPD Hematological: Reports: None Gastrointestinal: Reports: None Genitourinary: Reports: None Neuro/Psych: Reports: None Musculoskeletal: Reports: None Cancer: Reports: None - Surgical History General Surgical History: Reports: Appendectomy, Cholecystectomy, Orthopedic ( Knee replacement ), Back Surgery (x4) - Family History Family History: Reports: None, Unknown - Social History Smoking Status: Former smoker, Heavy tobacco smoker Hx Substance Use: No Alcohol Screening: None Physical Exam - Physical Exam Appearance: Ill-appearing Ill-appearing: Mild Pain Distress: None Eyes: LUCINA, EOMI, Conjunctiva clear ENT: Ears normal, Nose normal, Oropharynx normal Neck: Supple Respiratory: Airway patent, Breath sounds diminished, Respirations nonlabored, Wheezes Cardiovascular: RRR GI/: Soft Musculoskeletal: Normal strength Skin: Warm Neurological: Alert Psychiatric: Affect appropriate Interpretation - Radiology Interpretation Radiology Interpretation By: Radiologist Xray Comments: chronic airspace opacities Lt lower lobe Critical Care Note - Critical Care Note Total Time (mins): 60 Course - Course Hematology/Chemistry: 09/25/18 10:45 09/25/18 10:45 Orders, Labs, Meds: Lab Review 09/25/18 09/25/18 09/25/18 10:45 10:45 10:45 WBC 8.78 RBC 4.23 L Hgb 13.4 L Hct 39.6 L MCV 93.6 MCH 31.7 H MCHC 33.8 RDW Coeff of Camilo 13.6 Plt Count 222 Immature Gran % (Auto) 0.5 Neut % (Auto) 73.0 Lymph % (Auto) 17.0 Tama % (Auto) 9.1 Eos % (Auto) 0.3 Baso % (Auto) 0.1 Immature Gran # (Auto) 0.0 Neut # (Auto) 6.4 Lymph # (Auto) 1.5 Tama # (Auto) 0.8 Eos # (Auto) 0.0 Baso # (Auto) 0.0 Sodium 138.2 Potassium 3.99 Chloride 102.3 Carbon Dioxide 27.9 Anion Gap 11.99 BUN 19.5 Creatinine 1.08 Estimated GFR (MDRD) 65.00 BUN/Creatinine Ratio 18.05 Glucose 112.6 H Calcium 9.51 Total Bilirubin 1.21 AST 22.6 ALT 13.7 Alkaline Phosphatase 113.5 Total Protein 7.82 Albumin 4.07 Globulin 3.75 Albumin/Globulin Ratio 1.08 Influ A Molecular Assay Negative by naat Influ B Molecular Assay Negative by naat Orders Category Date Time Status EKG-(ED ONLY) Stat CARDIO 09/25/18 10:38 Completed NEBULIZER TREATMENT Stat CARDIO 09/25/18 10:37 Completed CBC W/ AUTO DIFF Stat LAB 09/25/18 10:45 Completed CMP [COMPREHENSIVE METABOLIC PANEL] Stat LAB 09/25/18 10:45 Completed FLU A & B MOLECULAR [FLU A/B MOLECULAR] Stat LAB 09/25/18 10:45 Completed MOLECULAR GROUP A STREP Stat LAB 09/25/18 10:45 Completed Ipratropium/Albuterol Neb [Duoneb] MEDS 09/25/18 10:37 Discontinued 1 vial NEB ONCE STA CHEST, 2 VIEWS PA & LAT Stat RADS 09/25/18 10:35 Completed Medications Discontinued Medications Generic Name Dose Route Start Last Admin Trade Name Freq PRN Reason Stop Dose Admin Albuterol/Ipratropium 1 vial 09/25/18 10:37 09/25/18 10:45 Duoneb NEB 09/25/18 10:38 1 vial ONCE STA Administration Vital Signs: Temp Pulse Resp BP Pulse Ox 09/25/18 09:27 100.1 F H 89 20 164/96 H 95 Departure - Departure Time of Disposition: 11:30 Disposition: HOME SELF-CARE Discharge Problem: URI (upper respiratory infection), COPD (chronic obstructive pulmonary disease) Instructions: Upper Respiratory Infection (ED) Condition: Good Pt referred to PMD for follow-up: Yes IPMP verified?: No Additional Instructions: Consume adequate oral liquids Take meds as directed Follow up pcp in 1 wk. Wear facial mask Prescriptions: Acetaminophen with Codeine [Tylenol/Codeine Elixir 120/12 mg/5 ml] 5 ml PO Q6H PRN #180 ml PRN Reason: Cough Azithromycin [Zithromax] 250 mg PO DAILY #6 tablet Allergies/Adverse Reactions: Allergies No Known Allergies Allergy (Verified 09/25/18 09:36) Home Medications: Ambulatory Orders Aspirin [Aspir 81] 81 mg PO BEDTIME #1 tab-cap 12/09/16 Docusate Sodium [Stool Softener] 100 mg PO BID #1 tab-cap 12/09/16 Ferrous Sulfate [Feosol] 325 mg PO BID #1 tab-cap 12/09/16 Hydrochlorothiazide 12.5 mg PO EVERY OTHER DAY 05/03/18 Multivitamin 1 cap PO DAILY 06/05/18 Oxycodone-Acetaminophen 5-325 [Percocet 5-325] 1 tab PO Q12H PRN 06/05/18 Acetaminophen with Codeine [Tylenol/Codeine Elixir 120/12 mg/5 ml] 5 ml PO Q6H PRN #180 ml 09/25/18 Azithromycin [Zithromax] 250 mg PO DAILY #6 tablet 09/25/18 Budesonide/Formoterol Fumarate [Symbicort 160-4.5 Mcg Inhaler] 2 puff IH BID 09/14 Loratadine [Claritin] 10 mg PO DAILY PRN 09/25/18 Oxybutynin Chloride [Ditropan] 5 mg PO DAILY 09/25/18 Disposition Discussed With: Patient
--- NOTE | 2018-09-25 11:17 | DI ---
Exam: Two views of the chest. Comparison: 06/05/2018. Reason for exam: Cough and congestion. FINDINGS: Similar appearing air space opacities in the left lower lobe. No pneumothorax is seen. The cardiac silhouette is unchanged. Impression: Similar appearing plaque in the left lower lobe not significantly changed from previous exam. No new air space consolidations are seen. Stable appearance of the chest.
== END 2018-09-25 12:05 | disposition home or self-care (01) ==
LOC: ED 09:27
DX: J06.9 Acute upper respiratory infection, unspecified (principal); J44.9 Chronic obstructive pulmonary disease, unspecified; I10 Essential (primary) hypertension; F17.210 Nicotine dependence, cigarettes, uncomplicated
CPT/HCPCS: 36415; 80053; 85025; 87502; 87651; 93005; 93010; 94640; 99283